=== PATIENT | female | born 1935 | race Asian ===

== ENCOUNTER 2019-04-16 08:38 | Emergency (ER) | payer OTHER, MEDICAID ==
[~2019-04-16] VITALS: Ht 152.4 cm; Wt 52.2 kg
[2019-04-16 08:38] VITALS: BP_SYST 148
--- NOTE | 2019-04-16 08:38 | NUR ---
BROUGHT IN BY [facility] FROM [facility], PLACED IN BED #6 AND TRIAGED. REPORT GIVEN TO CITLALI
--- NOTE | 2019-04-16 08:50 | NUR ---
PT laying in bed with a NG tube in a bag at the foot of the bed. Per PT's daughter she is scheduled for a g tube placement here at [facility]. Advised Dr. Gilbert.
--- NOTE | 2019-04-16 08:51 | NUR ---
ER at bedside examining patient.
--- NOTE | 2019-04-16 08:52 | NUR ---
CALLED TO [facility] AND GI/OR AND PT IS NOT SCHEDULED FOR G TUBE TODAY, CLARIFICATION WITH DAUGHTER IS THAT THE FAMILY WOULD LIKE A G TUBE BUT NOTHING IS SCHEDULED. EXPLAINED TO FAMILY THAT GTUBE PLACEMENT NEEDS TO BE IN SURGERY WITH SURGEON. DR DONIS SPEAKING WITH [facility].
--- NOTE | 2019-04-16 09:50 | NUR ---
Patient resting quietly. No acute distress noted. Vital signs within normal range.
--- NOTE | 2019-04-16 10:15 | NUR ---
SPOKE WITH MANDY AT [facility] AND HE STATES THAT FAMILY ONLY WANTS A G TUBE, NOT AN NG TUBE. DR DONIS AWARE. EXPLAINED THAT WE DON'T PLACE G TUBES IN ER AND IF FAMILY IS REFUSING NG TUBE, PT WILL EITHER HAVE TO BED ADMITTED OR SENT BACK TO [facility]
--- NOTE | 2019-04-16 10:40 | NUR ---
Receive order to place NG tube. PT tolerated procedure without complication. Radiology confirmed placement.
--- NOTE | 2019-04-16 11:36 | NUR ---
[facility] [phone] SPOKE WITH MELISSA ETA WILL BE 30-35 MINUTES SPOKE WITH AL THE BUSINESS ADMINISTRATION PROFESSOR FROM [facility] TO TRANSFER PATIENT BACK TO HER ROOM AND TO GIVE ETA [phone]
[2019-04-16 12:08] VITALS: BP_SYST 117
--- NOTE | 2019-04-16 12:08 | NUR ---
Patient's son given written and verbal discharge instructions and verbalizes understanding. ER MD discussed with patient's son the results and treatment provided. Patient in stable condition. ID arm band removed. No Rx given. Patient's son educated on pain management and to follow up with PMD. Pain Scale 0/10. Opportunity for questions provided and answered. Medication side effect fact sheet provided. REPORT GIVEN TO [facility] BY REVA AHN. PATIENT IN GOOD CONDITION AND IN NO ACUTE DISTRESS. PATIENT TRANSFERRED BACK TO [facility] VIA BLS TRANSPORT.
== END 2019-04-16 12:08 ==
LOC: SED 08:38
DX: Z46.59 Encounter for fitting and adjustment of other gastrointestinal appliance and device (principal); E03.9 Hypothyroidism, unspecified; I10 Essential (primary) hypertension; Z86.73 Personal history of transient ischemic attack (TIA), and cerebral infarction without residual deficits
CPT/HCPCS: 74018; 99284

== ENCOUNTER 2019-04-20 11:45 | Emergency (ER) | payer OTHER, MEDICAID ==
[~2019-04-20] VITALS: Ht 152.4 cm; Wt 49.9 kg
--- NOTE | 2019-04-20 11:52 | NUR ---
Arrived via S ambulance with compliant of NGT having been pulled, here for NGT replacement. Patient to ER singleton 1 to gown for evaluation. Side rails up. assumed care of patient.
[2019-04-20 11:55] VITALS: BP_SYST 12
--- NOTE | 2019-04-20 12:00 | NUR ---
Spoke with Marline from [facility] who states that the patient was transferred from [facility] for replacement of NGT by order of Dr. Allen. she was unable to provide a rationale for transfer to an acute care hospital for a nursing skill from a SNF. Marline confirmed that the patient is at her baseline mental status.
--- NOTE | 2019-04-20 12:11 | NUR ---
# 16 FR NG tube placed to right nare. Placement checked by auscultation of instilled air into stomach and aspiration of gastric contents. Tubing taped in place to prevent dislodging. Patient tolerated well.
--- NOTE | 2019-04-20 12:51 | NUR ---
Called [facility], patient will be sent back to [facility] via [facility] ambualnce.
--- NOTE | 2019-04-20 12:55 | NUR ---
Patient was transported back to [facility] via S ambulance. EMT were provided with Exit care.
== END 2019-04-20 12:55 | disposition home or self-care (01) ==
LOC: SED 11:45
DX: Z46.59 Encounter for fitting and adjustment of other gastrointestinal appliance and device (principal); E03.9 Hypothyroidism, unspecified; I10 Essential (primary) hypertension; E78.5 Hyperlipidemia, unspecified; Z86.73 Personal history of transient ischemic attack (TIA), and cerebral infarction without residual deficits
CPT/HCPCS: 71045; 99284

== ENCOUNTER 2020-01-15 05:51 | Emergency (ER) | payer OTHER, MEDICAID ==
[~2020-01-15] VITALS: Ht 152.4 cm; Wt 49.9 kg
[2020-01-15 05:51] VITALS: BP_SYST 166
--- NOTE | 2020-01-15 05:52 | NUR ---
Pt presents with 20 g IV access to right wrist that flushes well.
--- NOTE | 2020-01-15 05:52 | NUR ---
ER Dr. Cano at bedside examining patient.
--- NOTE | 2020-01-15 05:52 | NUR ---
Placed in room 01. Placed on conveyor monitor, blood pressure machine and pulse oximeter. To gown for exam. Side rails up.
--- NOTE | 2020-01-15 05:52 | NUR ---
Pt BIB [facility] from [facility] with c/o shortness of breath. Per EMS, facility found patient at 0520 with oxygen saturation of 84%. Per EMS, pt was put on non-rebreather 15L and pt had oxygen saturation of 100%. Pt presents to ER on non-rebreather at 15 L with oxygen with oxygen saturation of 100%. Pt has snoring respirations upon arrival. Per EMS, pt is normally on 2L nasal cannula at facility. Upon arrival, pt is nonverbal with eye tracking. Per EMS, this is baseline for pt. Pt presents with bilateral upper and lower contractures. Will continue to monitor.
--- NOTE | 2020-01-15 05:55 | NUR ---
RT at bedside. Pt titrated from 15 L non-rebreather to 2 L nasal cannula. Pt tolerated well. Pt oxygen saturation at 100%.
[2020-01-15] MEDS ORDERED: NACL 0.9% 1,000 ML IV ONE (06:06)
--- NOTE | 2020-01-15 06:28 | NUR ---
Lab at bedside.
--- NOTE | 2020-01-15 06:33 | NUR ---
Pt medicated per MD orders. Pt tolerated well. Will continue to monitor.
--- NOTE | 2020-01-15 06:37 | NUR ---
Radiology at bedside.
[2020-01-15 06:42] LABS: BASOPHILS % (AUTO) 0.6 % (0.0-2.0); EOSINOPHILS # (AUTO) 0.1 K/uL (0.0-0.4); EOSINOPHILS % (AUTO) 1.3 % (0.0-4.0); HEMATOCRIT 31.7 % (36-48); HEMOGLOBIN 10.8 g/dL (12.0-16.0); LYMPHOCYTES # (AUTO) 1.5 K/uL (1.0-5.5); LYMPHOCYTES % (AUTO) 17.2 % (20.5-51.5); MEAN CORPUSCULAR HEMOGLOBIN 28 pg (27-31); MEAN CORPUSCULAR HGB CONC 34 % (32-36); MEAN CORPUSCULAR VOLUME 83 fL (79.0-98.0); MONOCYTES # (AUTO) 0.7 K/uL (0.0-1.0); MONOCYTES % (AUTO) 7.8 % (1.7-9.3); NEUTROPHILS # (AUTO) 6.3 K/uL (1.8-7.7); NEUTROPHILS % (AUTO) 73.1 % (40.0-70.0); PLATELET COUNT (AUTO) 369 K/uL (130-430); RED BLOOD CELL COUNT(AUTO) 3.83 MIL/uL (4.2-6.2); RED CELL DISTRIBUTION WIDTH 14.8 % (9.0-15.0); WHITE BLOOD COUNT (AUTO) 8.6 K/uL (4.8-10.8)
--- NOTE | 2020-01-15 06:44 | NUR ---
RT at bedside
[2020-01-15] MEDS ORDERED: LEVALBUTEROL HCL 0.63 MG/3 ML VIAL.NEB INH ONE (06:45)
[2020-01-15 06:57] LABS: ANION GAP 9 (5-15); CALCIUM 8.9 mg/dL (8.4-11.0); CHLORIDE 93 mmol/L (98-107); CREATININE 0.86 mg/dL (0.55-1.30); GLUCOSE 106 mg/dL (70-99); POTASSIUM 4.7 mmol/L (3.5-5.1); SODIUM SERUM 126 mmol/L (136-145); UREA NITROGEN, BLOOD 38 mg/dL (8-21)
[2020-01-15 07:01] LABS: PROTHROMBIN TIME 9.7 SECS (9.5-12.5)
[2020-01-15 07:03] LABS: ALANINE AMINOTRANSFERASE 34 U/L (12-78); ALBUMIN 3.3 g/dL (3.4-4.8); ASPARTATE AMINOTRANSFERASE 30 U/L (10-37); TOTAL BILIRUBIN 0.3 mg/dL (0.0-1.0)
--- NOTE | 2020-01-15 07:07 | NUR ---
report given to REVA Mchugh to endorse all care.
--- NOTE | 2020-01-15 07:17 | NUR ---
FULL HEAD TO TOE ASSESSMENT; PATIENT REMAINS RESPONSIVE TO NOXIOUS STIMULI ONLY; BREATH SOUNDS CLEAR; ON OXYGEN 2LM NC, IV INFUSING NORMAL SALINE RIGHT HAND #22, DIAPERED WITH GASTRIC FEEDING TUBE PRESENT; NO OTHER REMARKABLE S/S; DISPOSITION PENDING Addendum: 01/15/20 at 0849 by MEDMT ABDOMINAL BINDER PRESENT
--- NOTE | 2020-01-15 07:20 | NUR ---
PATIENT REMAINS ON TRIBUNAL MEMBER, ABP, SAO2
[2020-01-15 07:42] LABS: BILIRUBIN,URINE NEGATIVE (NEGATIVE); BLOOD, URINE NEGATIVE (NEGATIVE); CLARITY/URINE CLEAR (CLEAR); COLOR,URINE YELLOW (YELLOW); GLUCOSE,URINE NEGATIVE (NEGATIVE); KETONES,URINE NEGATIVE (NEGATIVE); LEUKOCYTE ESTERASE ,URINE 2+ (NEGATIVE); NITRITE, URINE NEGATIVE (NEGATIVE); PH,URINE 7.5 (5.0-8.0); PROTEIN URINE 2+ (NEGATIVE); UROBILINOGEN,URINE 0.2 (0.2-1.0)
[2020-01-15 08:07] LABS: BACTERIA,URINE MODERATE /HPF (None Seen); RBC,URINE 0-3 /HPF (0-3); WBC,URINE 20-50 /HPF (0-3)
--- NOTE | 2020-01-15 08:45 | NUR ---
REASSESSMENT; PATIENT REMAINS SEDATE AND UNCHANGED
[2020-01-15] MEDS ORDERED: LEVOFLOXACIN 500 MG/D5W 100 ML IV ONE (09:00)
--- NOTE | 2020-01-15 11:15 | NUR ---
REASSESSMENT; ERMD ADVISED OF VITAL SIGNS; ETA FOR BCLS TRANSFER 20 MIN; DISPOSITION TO SNF PENDING; OTHERWISE PATIENT REMAINS SEDATE AND UNCHANGED
[2020-01-15 12:00] VITALS: BP_SYST 169
--- NOTE | 2020-01-15 12:02 | NUR ---
REASSESSMENT BY ERMD; ACI GIVEN TO EMT'S; REPORT CALLED TO SNF AT [phone]; IV OUT AND DRESSED; PATIENT DISCHARGED AND TRANSFERRED TO SNF BCLS; IMPROVED
== END 2020-01-15 12:00 | disposition home or self-care (01) ==
LOC: SED 05:51
DX: E86.0 Dehydration (principal); N39.0 Urinary tract infection, site not specified; D64.9 Anemia, unspecified; I10 Essential (primary) hypertension; K21.9 Gastro-esophageal reflux disease without esophagitis
CPT/HCPCS: 36415; 71045; 80053; 81000; 83605; 84484; 85025; 85610; 85730; 87040; 87086; 93005; 94640; 96361; 96365; 99285; J1956; J7030; J7614